=== PATIENT | male | born 1960 | race Caucasian/White ===

== ENCOUNTER 2022-03-01 16:41 | Emergency (ER) | payer OTHER, SELFPAY ==
[2022-03-01 17:31] VITALS: BP 168/103; PULSE 74; RESP 17; TEMP 36.8; O2SAT 98
[2022-03-01 19:51] LABS: Add Manual Diff / Slide Review NO; Basophils Absolute Auto 0 /uL (0-100); Basophils Percent Auto 0.3 % (0-2); Eosinophils Absolute Auto 200 /uL (0-450); Eosinophils Percent Auto 2.1 % (2-4); Hematocrit 39.3 % (41-53); Hemoglobin 13.1 g/dL (13.5-17.5); Lymphocytes Absolute Auto 1300 /uL (1100-4500); Lymphocytes Percent Auto 16.5 % (25-40); Mean Corpuscular HGB Conc 33.3 % (30-36); Mean Corpuscular Hemoglobin 29.5 PG (26-34); Mean Corpuscular Volume 88.5 fL (80-100); Monocytes Absolute Auto 500 /uL (0-900); Neutrophils Absolute Auto 5800 /uL (1500-7000); Neutrophils Percent Auto 75.1 % (50-75); Platelet Count 206 X10^3/uL (150-400); Red Blood Cell Count 4.45 X10^6/uL (4.5-5.9); Red Cell Distribution Width 13.7 % (11.6-14.8); White Blood Cell Count 7.7 X10^3/uL (4.5-11.0)
[2022-03-01 20:14] LABS: Alanine Aminotransferase 27 IU/L (<50); Albumin 4.4 g/dL (3.5-5.0); Albumin Globulin Ratio 1.2 (1.0-2.8); Alkaline Phosphatase 44 U/L (38-126); Aspartate Aminotransferase 33 IU/L (17-59); BUN Creatinine Ratio 19.7 (6-22); Bilirubin Total 0.9 mg/dL (0.2-1.3); Blood Urea Nitrogen 14 mg/dL (9-20); Carbon Dioxide 28 mmol/L (22-32); Chloride 102 mmol/L (98-107); Estimated Glomerular Filt Rate > 60 mL/min (>60); Globulin 3.6 g/dL (1.7-4.1); Glucose 107 mg/dL (70-100); HEMOLYSIS 48 (0-50); Sodium 141 mmol/L (137-145); Uric Acid 4.9 mg/dL (3.5-8.5)
--- NOTE | 2022-03-01 22:03 | PC.NURSE ---
Patient went to [facility] in [place] on Friday, given antibiotics which patient states improving the first day but feels like swelling has gotten worse today.
--- NOTE | 2022-03-01 23:30 | ED_ITS ---
HPI - Skin/Abscess/Foreign Bdy General Chief complaint: Skin/Abscess/Foreign Body Stated complaint: Rt hand swelling Time Seen by Provider: 03/01/22 18:32 Source: patient Mode of arrival: Ambulatory History of Present Illness HPI narrative: 61-year-old gentleman describes no significant past medical history presents with right hand and wrist swelling. Describes no trauma, puncture wounds or other concerns. He 1st started noticing that the hand was somewhat swollen on the th. Continued to worsen and by the was seen at urgent care and given a shot of ceftriaxone and placed on Augmentin with the presumption of a cellulitis. For approximately 36 hours he felt that he was improving and then has gotten worse. He is having increasing redness, swelling and pain. Wrist has somewhat limited range of motion the swelling is significant over the dorsum of the hand without obvious abscess or cellulitis demarcation. The entire dorsum of the hand and wrist are warm to the touch without active synovitis. He is never had gout or other significant arthritis diagnoses. He is describing no fever, cough, chills, chest pain, dyspnea. There is no tenderness in the elbow or more proximal and he has no lymphangitic streaking. Related Data Home Medications Medication Instructions Recorded Confirmed amoxicillin 875 mg-potassium 1 tab PO BID 03/01/22 03/01/22 clavulanate 125 mg tablet lisinopril 30 mg tablet 30 mg PO DAILY 03/01/22 03/01/22 Previous Rx's Medication Instructions Recorded methylprednisolone 4 mg tablets in 4 mg PO DAILY #21 ea 03/02/22 a dose pack (Medrol (Miguel)) Allergies Allergy/AdvReac Type Severity Reaction Status Date / Time iodine Allergy Rash Verified 03/01/22 17:34 Review of Systems Review of Systems Narrative: Remainder of complete review of systems is otherwise unremarkable except for that included in the HPI. Patient History Social History Smoking Status: Former smoker Smoking Status: Former smoker alcohol intake frequency: other Substance Use Type: does not use Exam Initial Vital Signs Initial Vital Signs: Vital Signs Temperature 98.2 F 03/01/22 17:31 Pulse Rate 74 03/01/22 17:31 Respiratory Rate 17 03/01/22 17:31 Blood Pressure 168/103 H 03/01/22 17:31 Pulse Oximetry 98 03/01/22 17:31 Oxygen Delivery Method 03/01/22 17:31 General: Healthy appearing, in no acute distress. Able to give a complete and coherent history. Well-nourished well-developed HEENT: Moist mucous membranes, normal sclera with reactive pupils, Neck: supple Respiratory: Lungs are clear to auscultation, no wheezing no rales no rhonchi. Full and symmetrical air movement Cardiac: Regular rate and rhythm no murmurs no bruits Abdomen: Soft, nontender, good bowel tones, no flank pain Skin: Warm and dry, no rashes Neurologic: Grossly neurologically intact with no obvious asymmetries or abnormalities Extremities: Right hand is examined. Significant warmth redness and swelling to the hand particularly over the dorsum without obvious abscess or cellulitis demarcation. There is no evidence of trauma, contusions, obvious entry sites or bite deluca for infection. He is neurovascularly intact. No lymphangitic streaking proximally. No active synovitis appreciated Psych: Cooperative, appropriate insight and affect Course Orders Ordered: ED Orders 03/01/22 19:44 CRP [C-Reactive Protein Quant] Stat Complete Blood Count AUTO DIFF Stat Comprehensive Metabolic Panel Stat Erythrocyte Sedimentation Rate Stat Uric Acid Stat 03/01/22 23:35 CT UE RT w con Stat Vital Signs Vital signs: Vital Signs - 8 hr 03/02/22 01:06 Pulse Rate 64 Respiratory Rate 16 Blood Pressure 150/86 H Pulse Oximetry 97 Oxygen Delivery Method Room Air MDM - Skin/Abscess/Foreign Bdy Lab Data Result diagrams: 03/01/22 19:44 03/01/22 19:44 Labs: Lab Results 03/01/22 03/01/22 03/01/22 Range/Units 19:44 19:44 19:44 WBC 7.7 (4.5-11.0) X10^3/uL RBC 4.45 L (4.5-5.9) X10^6/uL Hgb 13.1 L (13.5-17.5) g/dL Hct 39.3 L (41-53) % MCV 88.5 (80-100) fL MCH 29.5 (26-34) PG MCHC 33.3 (30-36) % RDW 13.7 (11.6-14.8) % Plt Count 206 (150-400) X10^3/uL Neut % (Auto) 75.1 H (50-75) % Lymph % (Auto) 16.5 L (25-40) % Jackson % (Auto) 6.0 (3-14) % Eos % (Auto) 2.1 (2-4) % Baso % (Auto) 0.3 (0-2) % Neut # (Auto) 5800 (5280-4129) /uL Lymph # (Auto) 1300 (0217-1799) /uL Jackson # (Auto) 500 (0-900) /uL Eos # (Auto) 200 (0-450) /uL Baso # (Auto) 0 (0-100) /uL ESR 35 H (0-15) MM/HR Sodium 141 (137-145) mmol/L Potassium 4.0 (3.4-5.1) mmol/L Chloride 102 (98-107) mmol/L Carbon Dioxide 28 (22-32) mmol/L BUN 14 (9-20) mg/dL Creatinine 0.71 (0.66-1.25) mg/dL Estimated GFR > 60 (>60) mL/min BUN/Creatinine Ratio 19.7 (6-22) Glucose 107 H (70-100) mg/dL Uric Acid 4.9 (3.5-8.5) mg/dL Calcium 9.0 (8.4-10.2) mg/dL Total Bilirubin 0.9 (0.2-1.3) mg/dL AST 33 (17-59) IU/L ALT 27 (<50) IU/L Alkaline Phosphatase 44 (38-126) U/L C-Reactive Protein (<1.0) mg/dL Total Protein 8.0 (6.3-8.2) g/dL Albumin 4.4 (3.5-5.0) g/dL Globulin 3.6 (1.7-4.1) g/dL Albumin/Globulin Ratio 1.2 (1.0-2.8) 03/01/22 Range/Units 19:44 WBC (4.5-11.0) X10^3/uL RBC (4.5-5.9) X10^6/uL Hgb (13.5-17.5) g/dL Hct (41-53) % MCV (80-100) fL MCH (26-34) PG MCHC (30-36) % RDW (11.6-14.8) % Plt Count (150-400) X10^3/uL Neut % (Auto) (50-75) % Lymph % (Auto) (25-40) % Jackson % (Auto) (3-14) % Eos % (Auto) (2-4) % Baso % (Auto) (0-2) % Neut # (Auto) (6184-2032) /uL Lymph # (Auto) (7778-9489) /uL Jackson # (Auto) (0-900) /uL Eos # (Auto) (0-450) /uL Baso # (Auto) (0-100) /uL ESR (0-15) MM/HR Sodium (137-145) mmol/L Potassium (3.4-5.1) mmol/L Chloride (98-107) mmol/L Carbon Dioxide (22-32) mmol/L BUN (9-20) mg/dL Creatinine (0.66-1.25) mg/dL Estimated GFR (>60) mL/min BUN/Creatinine Ratio (6-22) Glucose (70-100) mg/dL Uric Acid (3.5-8.5) mg/dL Calcium (8.4-10.2) mg/dL Total Bilirubin (0.2-1.3) mg/dL AST (17-59) IU/L ALT (<50) IU/L Alkaline Phosphatase (38-126) U/L C-Reactive Protein 5.7 H (<1.0) mg/dL Total Protein (6.3-8.2) g/dL Albumin (3.5-5.0) g/dL Globulin (1.7-4.1) g/dL Albumin/Globulin Ratio (1.0-2.8) Imaging Data CT hand: Radiologist's Impression: FINDINGS:? Image quality:? Excellent.? ? Bones:? No bony erosions or periosteal reaction.? No fractures or dislocation.? There are cystic changes within the lunate suggestive of degenerative subchondral cysts.? There also small subchondral cysts along the proximal aspect of the lunate and triquetrum which may represent sequelae of ulnar impaction syndrome. ? Soft tissues:? There are periarticular small clustered calcifications along the carpus and radiocarpal joint.? There is a small radiocarpal joint effusion.? Subcutaneous fat stranding is demonstrated along the dorsal aspect of the hand and wrist compatible with history of cellulitis.? Mild edema is demonstrated along the extensor tendons without definite loculated tenosynovial fluid.? No discrete loculated abscess collection. ? IMPRESSION:? ? 1. Dorsal subcutaneous edema and peritendinous edema compatible with patient's history of cellulitis.? No discrete abscess collection or evidence of tenosynovitis. ? 2. Small radiocarpal joint effusion with multiple small clustered periarticular calcifications.? The findings are nonspecific and the differential includes sequelae of an inflammatory arthropathy, dystrophic calcifications, or heterotopic calcification.? ? ? Dictated by: Chris Baires M.D. on 03/02/2022 at 1:14 ? ? [facility] Narrative Medical decision making narrative: 61-year-old gentleman with right hand swelling getting worse currently on amoxicillin. CT scan suggests that he probably does have mild cellulitis without deeper infection. There may be a rheumatologic component as well. Will add a Medrol Dosepak to help with the inflammatory response and have him complete the course of Augmentin for his cellulitis. At this point there is no indication for hospitalization or surgical consultation. No evidence of sepsis. There is no evidence osteomyelitis or gout. Findings reviewed with patient and he is safe discharge home Discharge Plan Departure Patient Disposition: Home Clinical Impression: Cellulitis Instructions: DI for Cellulitis -- Adult Activity Restrictions/Additional Instructions: Thank you for coming in today The CT scan of your hand confirms that continuing the antibiotics are going to be very appropriate. There does not appear to be a deeper abscess, bone or tendon infection. There may be a component of arthritis. For the swelling and the possible arthritis component, I am going to suggest that you complete a Medrol Dosepak. This is a steroid and can help with both the swelling and the pain. Please make sure you complete the full course of Augmentin that you got from urgent care. If you find that you are getting worse or develop any new symptoms, please feel free to return to the emergency department for further evaluation. Prescriptions: New methylprednisolone [Medrol (Miguel)] 4 mg tablets,dose pack 4 mg PO DAILY Qty: 21 0RF No Action lisinopril 30 mg tablet 30 mg PO DAILY amoxicillin-pot clavulanate 875-125 mg tablet 1 tab PO BID
--- NOTE | 2022-03-01 23:35 | DI.CT.S_ITS ---
PROCEDURE: CT HAND RIGHT WITH CON INDICATIONS: red/swollen hand/wrist worse with abx ? deep infec TECHNIQUE: Noncontrast 1 mm axial sections acquired through the carpal bones, with coronal and sagittal reformats. COMPARISON: None. FINDINGS: Image quality: Excellent. Bones: No bony erosions or periosteal reaction. No fractures or dislocation. There are cystic changes within the lunate suggestive of degenerative subchondral cysts. There also small subchondral cysts along the proximal aspect of the lunate and triquetrum which may represent sequelae of ulnar impaction syndrome. Soft tissues: There are periarticular small clustered calcifications along the carpus and radiocarpal joint. There is a small radiocarpal joint effusion. Subcutaneous fat stranding is demonstrated along the dorsal aspect of the hand and wrist compatible with history of cellulitis. Mild edema is demonstrated along the extensor tendons without definite loculated tenosynovial fluid. No discrete loculated abscess collection. IMPRESSION: 1. Dorsal subcutaneous edema and peritendinous edema compatible with patient's history of cellulitis. No discrete abscess collection or evidence of tenosynovitis. 2. Small radiocarpal joint effusion with multiple small clustered periarticular calcifications. The findings are nonspecific and the differential includes sequelae of an inflammatory arthropathy, dystrophic calcifications, or heterotopic calcification. Dictated by: Chris Baires M.D. on 03/02/2022 at 1:14 Approved by: Chris Baires M.D. on 03/02/2022 at 1:21
[2022-03-02 00:18] LABS: C-Reactive Protein Quant 5.7 mg/dL (<1.0)
[2022-03-02 00:50] LABS: Erythrocyte Sedimentation Rate 35 MM/HR (0-15)
[2022-03-02 01:06] VITALS: BP 150/86; PULSE 64; RESP 16; O2SAT 97
[2022-03-02] MEDS: dexAMETHasone 4 MG TABLET 8 MG PO (03:04)
[2022-03-02 03:09] VITALS: BP 142/80; PULSE 60; RESP 16; O2SAT 98
== END 2022-03-02 03:11 | disposition home or self-care (01) ==
PROVIDERS: Emergency Provider Emergency Medicine
DX: L03.113 Cellulitis of right upper limb (principal)
CPT/HCPCS: 36415; 73201; 80053; 84550; 85025; 85651; 86140; 99284; Q9967